=== PATIENT | male | born 1970 | race Caucasian/White ===

== ENCOUNTER 2021-03-21 12:44 | Outpatient (REF) | payer BC, SELFPAY ==
--- NOTE | ~2021-03-21 | XR_ITS ---
EXAMINATION: XR ANKLE, LEFT CLINICAL INFORMATION: Pain COMPARISON: None TECHNIQUE: AP, lateral, and mortise views of the left ankle. FINDINGS: Visualized portion of the distal tibia and fibula demonstrate no fracture. Ankle mortise is maintained. No focal soft tissue swelling. No gross ankle joint effusion. XR/XR ankle LT min 3V IMPRESSION: No fracture or dislocation of the left ankle.
== END 2021-03-21 12:45 | disposition home or self-care (01) ==
LOC: HO.HOSX 12:44
PROVIDERS: Visit Provider Orthopaedic Surgery
DX: M25.372 Other instability, left ankle (principal)
CPT/HCPCS: 73610